=== PATIENT | female | born 1990 | race Caucasian/White ===

== ENCOUNTER 2016-12-23 22:07 | Inpatient (IN) | payer OTHER ==
[2016-12-23] MEDS ORDERED: PROTONIX40 M2 PO (22:32)
[2016-12-23] MEDS ORDERED: PRENA1 CHEW TA1.4 M1 PO (22:32)
[2016-12-24 01:03] LABS: BASO % 0.1 % (0-2); EOS % 0.2 % (0-7); HCT-HEMATOCRIT 33.1 % (34.0-49.0); IMMATURE GRANULOCYTES ABSOLUTE 0.08 tho/cmm (0-0.03); IMMATURE GRANULOCYTES PERCENT 0.4 % (0-0.3); LYMPH ABSOLUTE COUNT 1.6 tho/cmm (0.8-4.5); MCH (MEAN CORPUSCULAR HGB) 31.1 pg (28.0-32.0); MCHC MEAN CORPUSCULAR HGB CONC 33.2 % (32.0-36.0); MCV (MEAN CELL VOLUME) 93.5 fl (82.0-96.0); MONO % 3.6 % (0-12); MONOCYTE ABSOLUTE COUNT 0.7 tho/cmm (0.0-1.2); NEUTROPHILS % 87.7 % (40-80); PLATELET COUNT 162 tho/cmm (150-450); RED BLOOD COUNT 3.54 mil/cmm (4.00-5.20); RED CELL DISTRIBUTION WIDTH 13.5 % (12.4-16.4); WHITE BLOOD COUNT 19.4 tho/cmm (4.0-10.0)
[2016-12-24 11:01] LABS: BASO % 0.1 % (0-2); EOS % 0.3 % (0-7); EOSINOPHIL ABSOLUTE COUNT 0.1 tho/cmm (0.0-0.7); HCT-HEMATOCRIT 33.1 % (34.0-49.0); HGB-HEMOGLOBIN 10.9 gm/dl (12.0-15.5); IMMATURE GRANULOCYTES ABSOLUTE 0.04 tho/cmm (0-0.03); IMMATURE GRANULOCYTES PERCENT 0.3 % (0-0.3); LYMPH % 13.1 % (20-45); MCH (MEAN CORPUSCULAR HGB) 31.1 pg (28.0-32.0); MCHC MEAN CORPUSCULAR HGB CONC 32.9 % (32.0-36.0); MCV (MEAN CELL VOLUME) 94.6 fl (82.0-96.0); MEAN PLATELET VOLUME 11.3 cmc (9.4-12.4); MONO % 4.7 % (0-12); MONOCYTE ABSOLUTE COUNT 0.7 tho/cmm (0.0-1.2); NEUTROPHIL ABSOLUTE COUNT 12.4 tho/cmm (1.6-8.0); NEUTROPHIL-AUTOMATED 12.4 tho/cmm (1.6-8.0); NEUTROPHILS % 81.5 % (40-80); PLATELET COUNT 153 tho/cmm (150-450); RED CELL DISTRIBUTION WIDTH 13.6 % (12.4-16.4); WHITE BLOOD COUNT 15.3 tho/cmm (4.0-10.0)
[2016-12-25] MEDS ORDERED: IBUPROFEN800 M1 PO (10:20)
[2016-12-25] MEDS ORDERED: COLACE100 M1 PO (10:20)
== END 2016-12-25 11:45 | DRG 775 ==
LOC: LDR 22:07 → OBGF 12-24 01:09
PROVIDERS: Obstetrics & Gynecology; ADMIT Obstetrics & Gynecology
PROC: 0KQM0ZZ Repair Perineum Muscle, Open Approach (ICD-10-PCS; principal; 2016-12-23)
PROC: 10E0XZZ Delivery of Products of Conception, External Approach (ICD-10-PCS; 2016-12-23)
DX: O70.1 Second degree perineal laceration during delivery (principal); Z37.0 Single live birth; Z3A.38 38 weeks gestation of pregnancy
CPT/HCPCS: J2590